=== PATIENT | male | born 1965 | race Caucasian/White ===

== ENCOUNTER 2025-04-26 21:48 | Emergency (ER) | payer MEDICARE ==
[~2025-04-26] VITALS: Ht 172.7 cm; Wt 94.8 kg
[2025-04-26] MEDS: SODIUM CHLORIDE 0.9% 1000ML 1,000 ML IV STA (22:34)
[2025-04-26] MEDS: DIAZEPAM INJ 5 MG/ML 2 ML IV STA (22:34)
[2025-04-27] MEDS ORDERED: ACETAMINOPHEN-1 EAC4 PO (00:42)
[2025-04-27 00:45] VITALS: PULSE 73; RESP 18; TEMP 97.8
[2025-04-27 01:04] VITALS: BP 199/118; PULSE 73; RESP 18; TEMP 97.8; O2SAT 98
== END 2025-04-27 01:07 | disposition home or self-care (01) ==
LOC: FSED 21:51
DX: M50.10 Cervical disc disorder with radiculopathy, unspecified cervical region (principal); I16.0 Hypertensive urgency; I10 Essential (primary) hypertension; I50.9 Heart failure, unspecified; E78.5 Hyperlipidemia, unspecified
CPT/HCPCS: 72125; 73200; 80048; 85025; 99284; J3360; J7030